=== PATIENT | male | born 1960 | race Caucasian/White ===

== ENCOUNTER 2017-01-03 02:12 | Emergency (ER) | payer BC, OTHER ==
--- NOTE | 2017-01-03 02:49 | EDM.PDOC ---
ED HPI Trauma - General Chief Complaint: Lower Extremity Injury/Pain Stated Complaint: POSSIBLE BROKEN LEG Time Seen by Provider: 01/03/17 02:47 Source: Reports: Patient History Limitations: Reports: No limitations - History of Present Illness INITIAL COMMENTS - FREE TEXT/NARRATIVE: slipped on wet spot felt a pop had ORIF in that leg. Allergies/ADRs: Allergies No Known Allergies Allergy (Verified 01/03/17 02:13) Home Medications: Ambulatory Orders Metoprolol Tartrate [Lopressor] 25 mg PO BID 02/05/15 [Confirmed 01/03/17] Rivaroxaban [Xarelto] 1 tab PO DAILY 01/03/17 [Confirmed 01/03/17] Past Medical History HEENT History: Reports: None Cardiovascular History: Reports: Hypertension Respiratory History: Reports: None Gastrointestinal History: Reports: None Genitourinary History: Reports: None Musculoskeletal History: Reports: Other (see below) Other Musculoskeletal History: left tibia, fibula fracture Neurological History: Reports: None Psychiatric History: Reports: None Endocrine/Metabolic History: Reports: None Hematologic History: Reports: None Immunologic History: Reports: None Oncologic (Cancer) History: Reports: None Dermatologic History: Reports: None Social & Family History - Tobacco Use Smoking Status *Q: Never Smoker Years of Tobacco use: 30 Used Tobacco, but Quit: Yes Month Tobacco Last Used: 0 Second Hand Smoke Exposure: No - Caffeine Use Caffeine Use: Reports: Coffee, Soda - Alcohol Use Days Per Week of Alcohol Use: 0 Number of Drinks Per Day: 6 Total Drinks Per Week: 0 - Recreational Drug Use Recreational Drug Use: No Review of Systems - Review of Systems Review Of Systems: ROS reveals no pertinent complaints other than HPI. Trauma Exam - Physical Exam Exam: See Below Exam Limited By: No limitations General Appearance: Reports: alert, WD/WN, mild distress, other (discomfort) Head: Reports: atraumatic Ears: Reports: hearing grossly normal Throat/Mouth: Reports: Normal voice, No airway compromise Neck: Reports: non-tender, full range of motion Respiratory Exam: Reports: no respiratory distress Cardiovascular: Reports: regular rate, rhythm GI/Abdominal: Reports: soft, non tender Neurologic: Reports: alert, normal mood/affect, oriented x 3 Skin: Reports: Normal color, Warm/dry Course - Vital Signs Last Recorded V/S: Last Vital Signs Temp 36.2 C 01/03/17 02:14 Pulse 90 01/03/17 02:14 Resp 18 01/03/17 02:14 BP 154/83 H 01/03/17 02:14 Pulse Ox 97 01/03/17 02:14 - Orders/Labs/Meds Orders: Active Orders 24 hr Category Date Time Status Tibia Fibula Rt [CR] Urgent Exams 01/03/17 02:19 Taken - Re-Assessments/Exams Free Text/Narrative Re-Assessment/Exam: 01/03/17 03:28 results discussed with Pt. Departure - Departure Time of Disposition: 03:28 Disposition: Home, Self-Care 01 Condition: good Clinical Impression: Closed tibial fracture Qualifiers: Encounter type: initial encounter Tibia location: shaft Fracture morphology: spiral Fracture alignment: nondisplaced Laterality: right Qualified Code(s): S82.244A - Nondisplaced spiral fracture of shaft of right tibia, initial encounter for closed fracture Instructions: Tibial Fracture, Adult, [id number] Forms: ED Department Discharge Additional Instructions: 1) wear cast boot and use crutches until re-evaluated by ORTHOPEDIST 2) call ORTHOPEDIST Wednesday 3) elevate leg as much as possible next 48 hours 4) ice intermittently for swelling. 5) recheck if there is any change or concern - My Orders Last 24 Hours: My Active Orders 01/03/17 02:19 Tibia Fibula Rt [CR] Urgent - Assessment/Plan Last 24 Hours: My Active Orders 01/03/17 02:19 Tibia Fibula Rt [CR] Urgent
[2017-01-03 03:48] VITALS: BP 138/72
== END 2017-01-03 03:43 | disposition home or self-care (01) ==
LOC: DL.ED 02:12
DX: S82.244A Nondisplaced spiral fracture of shaft of right tibia, initial encounter for closed fracture (principal); I10 Essential (primary) hypertension; W01.0XXA Fall on same level from slipping, tripping and stumbling without subsequent striking against object, initial encounter
CPT/HCPCS: 73590-RT; 99283

== ENCOUNTER 2020-03-11 11:14 | Emergency (ER) | payer BC ==
[2020-03-11] MEDS ORDERED: Sodium Chloride 0.9% 10 ML Syringe FLUSH PRN (11:26)
--- NOTE | 2020-03-11 11:31 | EDM.PDOC ---
ED HPI GENERAL MEDICAL PROBLEM - General Stated Complaint: BP HIGH/PAIN IN LEFT ARM Time Seen by Provider: 03/11/20 11:31 Source of Information: Reports: Patient, RN, RN Notes Reviewed History Limitations: Reports: No Limitations - History of Present Illness INITIAL COMMENTS - FREE TEXT/NARRATIVE: Patient presents to ER with complaint of chest heaviness, left arm numbness and tingling for the past couple weeks, intermittently. Patient states at night he sometimes feels his heart pounding. Patient states after stopping smoking several years ago he did have atrial fibrillation. Patient denies any chest pain, but complains of chest pressure or heaviness intermittently. States he does get short of breath once in a while with this. Denies any recent illnesses, fever, chills, nausea, vomiting, diarrhea. Patient states he had the right leg broken several years ago, states he wears HEMANTH hose most of the time now and longer takes his Xarelto. Patient also complains of high blood pressure, states he is on 2 different blood pressure medications for which he takes at noon. Patient states he has not taken these medications yet today. The rest of the blood pressure does decrease. Initial blood pressure 203/100, next blood pressure taken was 173/89. States he is not wearing his HEMANTH hose today as he thinks may be because he has been sweating and wearing the HEMANTH hose, he has developed small reddened areas on the skin on the legs that he wears the HEMANTH hose. Onset: Gradual Duration: Intermittent Chest Pain Score (Numeric/FACES): 3 - Related Data Allergies Allergy/AdvReac Type Severity Reaction Status Date / Time No Known Allergies Allergy Verified 03/11/20 11:32 Home Meds: Home Meds Losartan Potassium 25 mg PO DAILY 03/11/20 [History] Metoprolol Succinate 50 mg PO BID 03/11/20 [History] atorvaSTATin Calcium [Atorvastatin Calcium] 20 mg PO DAILY 03/11/20 [History] Past Medical History HEENT History: Reports: None Cardiovascular History: Reports: Hypertension Respiratory History: Reports: None Gastrointestinal History: Reports: None Genitourinary History: Reports: None Musculoskeletal History: Reports: Other (See Below) Other Musculoskeletal History: left tibia, fibula fracture Neurological History: Reports: None Psychiatric History: Reports: None Endocrine/Metabolic History: Reports: None Hematologic History: Reports: None Immunologic History: Reports: None Oncologic (Cancer) History: Reports: None Dermatologic History: Reports: None Social & Family History - Caffeine Use Caffeine Use: Reports: Coffee, Soda ED ROS GENERAL - Review of Systems Review Of Systems: Comprehensive ROS is negative, except as noted in HPI. ED EXAM, GENERAL - Physical Exam Exam: See Below Exam Limited By: No Limitations General Appearance: Alert, WD/WN, No Apparent Distress Eye Exam: Bilateral Eye: EOMI, Normal Inspection Ears: Normal External Exam, Hearing Grossly Normal Nose: Normal Inspection Throat/Mouth: Normal Inspection, Normal Voice, No Airway Compromise Head: Atraumatic, Normocephalic Neck: Normal Inspection, Supple, Non-Tender, Full Range of Motion Respiratory/Chest: No Respiratory Distress, Lungs Clear, Normal Breath Sounds, No Accessory Muscle Use, Chest Non-Tender Cardiovascular: Normal Peripheral Pulses, Regular Rate, Rhythm, No Edema, No Gallop, No JVD, No Murmur, No Rub Peripheral Pulses: 2+: Radial (L), Radial (R) GI/Abdominal: Normal Bowel Sounds, Soft, Non-Tender (Male) Exam: Deferred Rectal (Males) Exam: Deferred Back Exam: Normal Inspection, Full Range of Motion, NT Extremities: Redness (Small areas of redness on the right ankle and lower leg) Neurological: Alert, Oriented, CN II-XII Intact, Normal Cognition, Normal Gait, Normal Reflexes, No Motor/Sensory Deficits Psychiatric: Normal Affect, Normal Mood Skin Exam: Warm, Dry, Intact, Normal Color, Other (Small areas of erythema/dry skin to the right ankle/lower leg) Lymphatic: No Adenopathy Course - Vital Signs Last Recorded V/S: Last Vital Signs Temp 98.2 F 03/11/20 11:27 Pulse 74 03/11/20 11:27 Resp 14 03/11/20 11:27 BP 203/100 H 03/11/20 11:27 Pulse Ox 96 03/11/20 11:27 - Orders/Labs/Meds Orders: Active Orders 24 hr Category Date Time Status EKG Documentation Completion [RC] STAT Care 03/11/20 11:26 Active Peripheral IV Care [RC] . DIRECTED Care 03/11/20 11:27 Active Peripheral IV Insertion Adult [OM.PC] Stat Oth 03/11/20 11:26 Ordered Labs: Laboratory Tests 0603/11/20 03/11/20 Range/Units 11:31 11:31 11:31 WBC 5.1 (5.0-10.0) 10^3/uL RBC 4.33 L (4.6-6.2) 10^6/uL Hgb 14.6 D (14.0-18.0) g/dL Hct 42.1 (40.0-54.0) % MCV 97.2 (80-100) fL MCH 33.7 (27.0-34.0) pg MCHC 34.7 (33.0-35.0) g/dL Plt Count 128 L (150-450) 10^3/uL Neut % (Auto) 57.5 (42.2-75.2) % Lymph % (Auto) 29.5 (20.5-50.1) % [place] % (Auto) 10.6 H (2-8) % Eos % (Auto) 2.0 (1.0-3.0) % Baso % (Auto) 0.4 (0.0-1.0) % PT 10.2 (9.0-12.0) SEC INR 1.1 (0.9-1.2) D-Dimer, Quantitative (0-400) ng/mL Sodium 141 (136-145) mmol/L Potassium 3.2 L (3.5-5.1) mmol/L Chloride 103 (98-107) mmol/L Carbon Dioxide 29 (21-32) mmol/L Anion Gap 12.2 (7-13) mEq/L BUN 7 (7-18) mg/dL Creatinine 0.84 (0.70-1.30) mg/dL Est Cr Clr Drug Dosing 111.77 mL/min Estimated GFR (MDRD) > 60 BUN/Creatinine Ratio 8.3 (No establ ref range) Glucose 101 H (74-99) mg/dL Calcium 8.7 (8.5-10.1) mg/dL Total Bilirubin 1.3 H (0.2-1.0) mg/dL AST 29 (15-37) U/L ALT 25 (16-63) U/L Alkaline Phosphatase 109 (46-116) U/L Troponin I < 0.017 (0.000-0.056) ng/mL B-Natriuretic Peptide 201 H (0-100) pg/ml Total Protein 7.5 (6.4-8.2) g/dL Albumin 3.6 (3.4-5.0) g/dL Globulin 3.9 Albumin/Globulin Ratio 0.9 06//20 Range/Units 11:31 WBC (5.0-10.0) 10^3/uL RBC (4.6-6.2) 10^6/uL Hgb (14.0-18.0) g/dL Hct (40.0-54.0) % MCV (80-100) fL MCH (27.0-34.0) pg MCHC (33.0-35.0) g/dL Plt Count (150-450) 10^3/uL Neut % (Auto) (42.2-75.2) % Lymph % (Auto) (20.5-50.1) % [place] % (Auto) (2-8) % Eos % (Auto) (1.0-3.0) % Baso % (Auto) (0.0-1.0) % PT (9.0-12.0) SEC INR (0.9-1.2) D-Dimer, Quantitative 229 (0-400) ng/mL Sodium (136-145) mmol/L Potassium (3.5-5.1) mmol/L Chloride (98-107) mmol/L Carbon Dioxide (21-32) mmol/L Anion Gap (7-13) mEq/L BUN (7-18) mg/dL Creatinine (0.70-1.30) mg/dL Est Cr Clr Drug Dosing mL/min Estimated GFR (MDRD) BUN/Creatinine Ratio (No establ ref range) Glucose (74-99) mg/dL Calcium (8.5-10.1) mg/dL Total Bilirubin (0.2-1.0) mg/dL AST (15-37) U/L ALT (16-63) U/L Alkaline Phosphatase (46-116) U/L Troponin I (0.000-0.056) ng/mL B-Natriuretic Peptide (0-100) pg/ml Total Protein (6.4-8.2) g/dL Albumin (3.4-5.0) g/dL Globulin Albumin/Globulin Ratio Meds: Medications Discontinued Medications Generic Name Dose Route Start Last Admin Trade Name Freq PRN Reason Stop Dose Admin Sodium Chloride 10 ml 03/11/20 11:26 03/11/20 13:27 Saline Flush FLUSH 10 ml ASDIRECTED PRN Administration Keep Vein Open - Radiology Interpretation Free Text/Narrative:: Chest xray: 1. Reproducible upper lobe fibronodular densities, subtle asymmetric fullness in the right hilum, adenopathy?, And some lingular atelectasis/fibrosis that was present on January 2014 exam. 2. Normal cardiac silhouette and pulmonary vascularity. No cephalization of flow, alveolar edema or dependent new pleural fluid accumulation. 3. No new lung mass or focal lobar pneumonia. 4. No atelectasis/collapse. 5. No pneumothorax or pneumomediastinum. Midline tracheobronchial airway unremarkable. Collusion: No acute new cardiopulmonary abnormality. See rad report Departure - Departure Time of Disposition: 13:03 Disposition: Home, Self-Care 01 Reason for Transfer *Q: Other Condition: Good Clinical Impression: Nonspecific chest pain, Anxiety Hypertension Qualifiers: Hypertension type: unspecified Qualified Code(s): I10 - Essential (primary) hypertension Instructions: Chest Wall Pain, [id number], Nonspecific Chest Pain, Adult, [id number], Hypertension, Adult, [id number] Referrals: Mera Cordova [facility] [Primary Care Provider] - Forms: ED Department Discharge Additional Instructions: RX: Lorazepam Rest Refrain from drinking alcohol Follow up with Mera Rice for Stress Test Sepsis Event Note (ED) - Focused Exam Vital Signs: Vital Signs Temp Pulse Resp BP Pulse Ox 03/11/20 11:27 98.2 F 74 14 203/100 H 96 - My Orders Last 24 Hours: My Active Orders 03/11/20 11:26 EKG Documentation Completion [RC] STAT Peripheral IV Insertion Adult [OM.PC] Stat 03/11/20 11:27 Peripheral IV Care [RC] . DIRECTED - Assessment/Plan Last 24 Hours: My Active Orders 03/11/20 11:26 EKG Documentation Completion [RC] STAT Peripheral IV Insertion Adult [OM.PC] Stat 03/11/20 11:27 Peripheral IV Care [RC] . DIRECTED
[2020-03-11 11:32] VITALS: BP 203/100; PULSE 74
[2020-03-11 11:59] LABS: ANION GAP 12.2 mEq/L (7-13); CHLORIDE,CL 103 mmol/L (98-107); SODIUM,NA 141 mmol/L (136-145)
--- NOTE | 2020-03-11 13:40 | CR ---
EXAMINATION: Chest 1V Frontal SEX: Male AGE: 59 years CLINICAL HISTORY: 59-year-old male complaining of CHEST PAIN . Comparison CXR (PA/lateral) 04 Feb 2014. INTERPRETATION: Abnormal but generally unchanged. 1. Reproducible upper lobe fibronodular densities, subtle asymmetric fullness the right hilum (adenopathy?), and some lingular atelectasis/fibrosis that was present on January 2014 exam. 2. Normal cardiac silhouette and pulmonary vascularity. No cephalization of flow, alveolar edema or dependent new pleural fluid accumulation. 3. No new lung mass or focal lobar pneumonia. 4. No atelectasis/collapse. 5. No pneumothorax or pneumomediastinum. Midline tracheal bronchial airway unremarkable. CONCLUSION: No acute new cardiopulmonary abnormality. CONCLUSION:
== END 2020-03-11 13:28 | disposition home or self-care (01) ==
LOC: DL.ED 11:14
DX: I10 Essential (primary) hypertension (principal); F41.9 Anxiety disorder, unspecified; Z79.899 Other long term (current) drug therapy
CPT/HCPCS: 36415; 71045; 80053; 83880; 84484; 85025; 85379; 85610; 93005; 99285-25

== ENCOUNTER 2020-08-15 01:14 | Inpatient (IN) | payer BC ==
--- NOTE | 2020-08-15 01:20 | EDM.PDOC ---
ED HPI GENERAL MEDICAL PROBLEM - General Stated Complaint: AMBULANCE Time Seen by Provider: 08/15/20 01:12 Source of Information: Reports: Patient, EMS, EMS Notes Reviewed, RN, RN Notes Reviewed History Limitations: Reports: Intoxication - History of Present Illness INITIAL COMMENTS - FREE TEXT/NARRATIVE: Patient presents to ER per [facility] with complaint of intoxication, and fall at home. Family states patient had a syncopal episode, fell forward and hit his face and his head on the ground. Unsure if he passed out before he hit the ground or was knocked out when he hit the ground. Patient is a daily drinker. Patient states he did have COVID-19 last week but was back to work Wednesday and Wednesday this week. Onset: Today, Sudden - Related Data Allergies Allergy/AdvReac Type Severity Reaction Status Date / Time No Known Allergies Allergy Verified 03/11/20 11:32 Home Meds: Home Meds Losartan Potassium 25 mg PO DAILY 03/11/20 [History] Metoprolol Succinate 50 mg PO BID 03/11/20 [History] atorvaSTATin Calcium [Atorvastatin Calcium] 20 mg PO DAILY 03/11/20 [History] Past Medical History HEENT History: Reports: None Cardiovascular History: Reports: Hypertension Respiratory History: Reports: None Gastrointestinal History: Reports: None Genitourinary History: Reports: None Musculoskeletal History: Reports: Other (See Below) Other Musculoskeletal History: left tibia, fibula fracture Neurological History: Reports: None Psychiatric History: Reports: None Endocrine/Metabolic History: Reports: None Hematologic History: Reports: None Immunologic History: Reports: None Oncologic (Cancer) History: Reports: None Dermatologic History: Reports: None Social & Family History - Caffeine Use Caffeine Use: Reports: Coffee, Soda ED ROS GENERAL - Review of Systems Review Of Systems: Comprehensive ROS is negative, except as noted in HPI. ED EXAM, HEAD INJURY - Physical Exam Exam: See Below Exam Limited By: Intoxication General Appearance: Alert Head: Scalp Swelling, Scalp Abrasions, Facial Abrasions, Facial Tenderness Nexus Criteria: Evidence of Intoxication Eyes: Bilateral Eye: Conjunctival Injection, EOMI, PERRL (sluggish, 2) Ears: Normal External Exam, Hearing Grossly Normal Nose: Nasal Swelling, Nasal Tenderness, Dried Blood Throat/Mouth: Normal Teeth (false teeth), Lip Swelling, Other (dried blood on l ips) Neck: Non-Tender, Full Range of Motion, Normal Alignment, Normal Inspection Course - Vital Signs Last Recorded V/S: Last Vital Signs Temp 98.6 F 08/15/20 01:14 Pulse 88 08/15/20 01:14 Resp 18 08/15/20 01:14 BP 104/52 L 08/15/20 01:14 Pulse Ox 84 L 08/15/20 03:04 - Orders/Labs/Meds Orders: Active Orders 24 hr Category Date Time Status EKG Documentation Completion [RC] STAT Care 08/15/20 01:19 Active MVI, Adult with Vitamin K [Infuvite Adult] 10 ml Med 08/15/20 02:16 Active Folic Acid 1 mg Thiamine [Vitamin B-1] 100 mg Lactated Ringers [Ringers, Lactated] 1,000 ml IV ONETIME Medication Orders Multivitamins/Minerals 10 ml/Folic Acid 1 mg/ Thiamine HCl 100 mg/ Lactated Ringer's 1,011.2 mls @ 999 mls/hr IV ONETIME ONE Stop: 08/15/20 03:16 Last Admin: 08/15/20 02:30 Dose: 999 mls/hr Documented by: ANGEL Labs: Laboratory Tests 08/15/20 08/15/20 08/15/20 Range/Units 01:18 01:18 01:42 WBC 6.9 (5.0-10.0) 10^3/uL RBC 4.06 L (4.6-6.2) 10^6/uL Hgb 13.9 L (14.0-18.0) g/dL Hct 40.9 (40.0-54.0) % MCV 100.7 H D (80-100) fL MCH 34.2 H (27.0-34.0) pg MCHC 34.0 (33.0-35.0) g/dL Plt Count 325 D (150-450) 10^3/uL Neut % (Auto) 59.7 (42.2-75.2) % Lymph % (Auto) 22.3 (20.5-50.1) % Harris % (Auto) 15.8 H (2-8) % Eos % (Auto) 1.9 (1.0-3.0) % Baso % (Auto) 0.3 (0.0-1.0) % Add Manual Diff Yes Neutrophils % (Manual) 52 (42-75) % Band Neutrophils % 10 % Lymphocytes % (Manual) 24 (20-50) % Monocytes % (Manual) 12 H (2-8) % Eosinophils % (Manual) 2 (1-3) % PT (9.0-12.0) SEC INR (0.9-1.2) Sodium (136-145) mmol/L Potassium (3.5-5.1) mmol/L Chloride (98-107) mmol/L Carbon Dioxide (21-32) mmol/L Anion Gap (7-13) mEq/L BUN (7-18) mg/dL Creatinine (0.70-1.30) mg/dL Est Cr Clr Drug Dosing mL/min Estimated GFR (MDRD) BUN/Creatinine Ratio (No establ ref range) Glucose (74-99) mg/dL Calcium (8.5-10.1) mg/dL Total Bilirubin (0.2-1.0) mg/dL AST (15-37) U/L ALT (16-63) U/L Alkaline Phosphatase (46-116) U/L Troponin I (0.000-0.056) ng/mL C-Reactive Protein (0.0-0.9) mg/dL Total Protein (6.4-8.2) g/dL Albumin (3.4-5.0) g/dL Globulin Albumin/Globulin Ratio Urine Color Yellow (YELLOW) Urine Appearance Clear (CLEAR) Urine pH 6.0 (5.0-9.0) Ur Specific [facility] 1.010 (1.005-1.030) Urine Protein Negative (NEGATIVE) Urine Glucose (UA) Negative (NEGATIVE) Urine Ketones Negative (NEGATIVE) Urine Occult Blood Negative (NEGATIVE) Urine Nitrite Negative (NEGATIVE) Urine Bilirubin Negative (NEGATIVE) Urine Urobilinogen 0.2 (0.2-1.0) mg/dL Ur Leukocyte Esterase Negative (NEGATIVE) Urine RBC Not seen /HPF Urine WBC 0-5 (0-5/HPF) /HPF Ur Epithelial Cells Few (NOT SEEN) /HPF Amorphous Sediment Few (NOT SEEN) /HPF Urine Bacteria Rare (0-FEW/HPF) /HPF Urine Mucus Rare (NOT SEEN) /LPF Urine Opiates Screen Negative (NEGATIVE) Ur Oxycodone Screen Negative (NEGATIVE) Urine Methadone Screen Negative (NEGATIVE) Ur Barbiturates Screen Negative (NEGATIVE) U Tricyclic Antidepress Negative (NEGATIVE) Ur Phencyclidine Scrn Negative (NEGATIVE) Ur Amphetamine Screen Negative (NEGATIVE) U Methamphetamines Scrn Negative (NEGATIVE) Urine MDMA Screen Negative (NEGATIVE) U Benzodiazepines Scrn Negative (NEGATIVE) Urine Cocaine Screen Negative (NEGATIVE) U Marijuana (THC) Screen Negative (NEGATIVE) Ethyl Alcohol (0) mg/dL 08/15/20 08/15/20 Range/Units 01:42 01:42 WBC (5.0-10.0) 10^3/uL RBC (4.6-6.2) 10^6/uL Hgb (14.0-18.0) g/dL Hct (40.0-54.0) % MCV (80-100) fL MCH (27.0-34.0) pg MCHC (33.0-35.0) g/dL Plt Count (150-450) 10^3/uL Neut % (Auto) (42.2-75.2) % Lymph % (Auto) (20.5-50.1) % Harris % (Auto) (2-8) % Eos % (Auto) (1.0-3.0) % Baso % (Auto) (0.0-1.0) % Add Manual Diff Neutrophils % (Manual) (42-75) % Band Neutrophils % % Lymphocytes % (Manual) (20-50) % Monocytes % (Manual) (2-8) % Eosinophils % (Manual) (1-3) % PT 9.8 (9.0-12.0) SEC INR 1.0 (0.9-1.2) Sodium 131 L D (136-145) mmol/L Potassium 3.2 L (3.5-5.1) mmol/L Chloride 96 L (98-107) mmol/L Carbon Dioxide 25 (21-32) mmol/L Anion Gap 13.2 H (7-13) mEq/L BUN 9 (7-18) mg/dL Creatinine 1.19 (0.70-1.30) mg/dL Est Cr Clr Drug Dosing 71.55 mL/min Estimated GFR (MDRD) > 60 BUN/Creatinine Ratio 7.6 (No establ ref range) Glucose 114 H (74-99) mg/dL Calcium 8.5 (8.5-10.1) mg/dL Total Bilirubin 0.5 (0.2-1.0) mg/dL AST 44 H (15-37) U/L ALT 64 H (16-63) U/L Alkaline Phosphatase 97 (46-116) U/L Troponin I < 0.017 (0.000-0.056) ng/mL C-Reactive Protein 10.4 H (0.0-0.9) mg/dL Total Protein 7.1 (6.4-8.2) g/dL Albumin 2.7 L (3.4-5.0) g/dL Globulin 4.4 Albumin/Globulin Ratio 0.61 Urine Color (YELLOW) Urine Appearance (CLEAR) Urine pH (5.0-9.0) Ur Specific [facility] (1.005-1.030) Urine Protein (NEGATIVE) Urine Glucose (UA) (NEGATIVE) Urine Ketones (NEGATIVE) Urine Occult Blood (NEGATIVE) Urine Nitrite (NEGATIVE) Urine Bilirubin (NEGATIVE) Urine Urobilinogen (0.2-1.0) mg/dL Ur Leukocyte Esterase (NEGATIVE) Urine RBC /HPF Urine WBC (0-5/HPF) /HPF Ur Epithelial Cells (NOT SEEN) /HPF Amorphous Sediment (NOT SEEN) /HPF Urine Bacteria (0-FEW/HPF) /HPF Urine Mucus (NOT SEEN) /LPF Urine Opiates Screen (NEGATIVE) Ur Oxycodone Screen (NEGATIVE) Urine Methadone Screen (NEGATIVE) Ur Barbiturates Screen (NEGATIVE) U Tricyclic Antidepress (NEGATIVE) Ur Phencyclidine Scrn (NEGATIVE) Ur Amphetamine Screen (NEGATIVE) U Methamphetamines Scrn (NEGATIVE) Urine MDMA Screen (NEGATIVE) U Benzodiazepines Scrn (NEGATIVE) Urine Cocaine Screen (NEGATIVE) U Marijuana (THC) Screen (NEGATIVE) Ethyl Alcohol 257 (0) mg/dL Meds: Medications Generic Name Dose Route Start Last Admin Trade Name Freq PRN Reason Stop Dose Admin Multivitamins/Minerals 10 ml/ 1,011.2 mls @ 999 mls/hr 08/15/20 02:16 08/15/20 02:30 Folic Acid 1 mg/ Thiamine HCl IV 08/15/20 03:16 999 mls/hr 100 mg/ Lactated Ringer's ONETIME ONE Administration - Radiology Interpretation Free Text/Narrative:: CT Max/Face/Sinus wo contrast: PROCEDURE INFORMATION: Exam: CT Maxillofacial Without Contrast Exam date and time: 08/15/2020 1:55 AM Age: 60 years old Clinical indication: Injury or trauma; Fall; Blunt trauma (contusions or hematomas); Head/scalp; Loss of consciousness not known; Additional info: Passed out, hit head and face. TECHNIQUE: Imaging protocol: Computed tomography images of the face without contrast. Radiation optimization: All CT scans at this facility use at least one of these dose optimization techniques: automated exposure control; mA and/or kV adjustment per patient size (includes targeted exams where dose is matched to clinical indication); or iterative reconstruction. COMPARISON: No relevant prior studies available. FINDINGS: Orbital cavity: Orbits are normal. Globes are unremarkable. Bones/joints: No acute fracture. Paranasal sinuses: Chronic appearing mucosal thickening is present within the maxillary sinus on the left with postoperative change within the region of the ostiomeatal unit. Soft tissues: Unremarkable. IMPRESSION: 1. Chronic changes within the paranasal sinuses. No acute fracture identified Thank you for allowing us to participate in the care of your patient. Dictated and Authenticated by: Alexandru Hill MD 08/15/2020 2:18 AM Central Time ([place] & [place]) CT Head wo contrast: PROCEDURE INFORMATION: Exam: CT Head Without Contrast Exam date and time: 08/15/2020 1:55 AM Age: 60 years old Clinical indication: Injury or trauma; Fall; Blunt trauma (contusions or hematomas); Consciousness not specified; Additional info: Head injury TECHNIQUE: Imaging protocol: Computed tomography of the head without contrast. Radiation optimization: All CT scans at this facility use at least one of these dose optimization techniques: automated exposure control; mA and/or kV adjustment per patient size (includes targeted exams where dose is matched to clinical indication); or iterative reconstruction. COMPARISON: No relevant prior studies available. FINDINGS: Brain: Normal. No hemorrhage. Unremarkable white matter. No mass effect. Cerebral ventricles: No ventriculomegaly. Bones/joints: Unremarkable. No acute fracture. Paranasal sinuses: Chronic appearing mucosal changes are present within the left maxillary sinus. There is no fluid present. Mastoid air cells: Visualized mastoid air cells are well aerated. Soft tissues: Unremarkable. IMPRESSION: 1. No acute intracranial injury present. Thank you for allowing us to participate in the care of your patient. Dictated and Authenticated by: Alexandru Hill MD 08/15/2020 2:20 AM Central Time ([place] & [place]) CT CSpine wo contrast: PROCEDURE INFORMATION: Exam: CT Cervical Spine Without Contrast Exam date and time: 08/15/2020 1:55 AM Age: 60 years old Clinical indication: Injury or trauma; Fall; Blunt trauma; Additional info: Fall, injury TECHNIQUE: Imaging protocol: Computed tomography images of the cervical spine without contrast. Radiation optimization: All CT scans at this facility use at least one of these dose optimization techniques: automated exposure control; mA and/or kV adjustment per patient size (includes targeted exams where dose is matched to clinical indication); or iterative reconstruction. COMPARISON: No relevant prior studies available. FINDINGS: Vertebrae: Mild disc space narrowing is present throughout the cervical spine. Cervical vertebral body height and alignment are well maintained. No acute fractures are present. Facet joints are in anatomic alignment. C1-C2 relationship is well preserved. C2-C3: No significant disc protrusion. No severe spinal canal stenosis. No significant neural foraminal narrowing. C3-C4: No significant disc protrusion. No severe spinal canal stenosis. No significant neural foraminal narrowing. C4-C5: No significant disc protrusion. No severe spinal canal stenosis. No significant neural foraminal narrowing. C5-C6: No significant disc protrusion. No severe spinal canal stenosis. No significant neural foraminal narrowing. C6-C7: No significant disc protrusion. No severe spinal canal stenosis. No significant neural foraminal narrowing. C7-T1: No significant disc protrusion. No severe spinal canal stenosis. No significant neural foraminal narrowing. Soft tissues: Unremarkable. Lungs: Moderate grade emphysematous changes are noted within the upper lobes bilaterally. IMPRESSION: 1. Mild to moderate grade degenerative disc and degenerative joint disease. No acute cervical spine fracture or subluxation present. Thank you for allowing us to participate in the care of your patient. Dictated and Authenticated by: Alexandru Hill MD 08/15/2020 2:21 AM Central Time ([place] & [place]) Chest xray: PROCEDURE INFORMATION: Exam: XR Chest, 1 View Exam date and time: 08/15/2020 1:43 AM Age: 60 years old Clinical indication: Chest pain; Type not specified TECHNIQUE: Imaging protocol: XR of the chest Views: 1 view. COMPARISON: CR Chest 1V Frontal 03/11/2020 11:55 AM FINDINGS: Lungs: Chronic appearing interstitial changes are present with patchy airspace density in the periphery of both lungs. Findings could represent pneumonia. No pulmonary edema is present. Pleural space: Unremarkable. No pleural effusion. No pneumothorax. Heart/Mediastinum: Unremarkable. No cardiomegaly. Bones/joints: Unremarkable. IMPRESSION: Chronic appearing interstitial change with increased peripheral airspace opacity in both lungs when compared to the study performed on March 11, 2020. Findings are nonspecific. Atelectasis and pneumonia are possible. Consider atypical/viral etiologies. Thank you for allowing us to participate in the care of your patient. Dictated and Authenticated by: Alexandru Hill MD 08/15/2020 2:23 AM Central Time ([place] & [place]) See Rad report - Re-Assessments/Exams Free Text/Narrative Re-Assessment/Exam: 08/15/20 03:10 Oxygen saturation when sleeping down to low 80s. Patient put on nasal cannula 4 L to get above 90%. Discussed patient case with Dr. Davis who agreed to accept the patient for acute care admission. Departure - Departure Time of Disposition: 03:12 Disposition: Admitted As Inpatient 65 Condition: Fair Clinical Impression: Pneumonia due to 2019-nCoV Alcohol intoxication Qualifiers: Complication of substance-induced condition: with unspecified complication Qualified Code(s): F10.929 - Alcohol use, unspecified with intoxication, unspecified - Discharge Information *PRESCRIPTION DRUG MONITORING PROGRAM REVIEWED*: No *COPY OF PRESCRIPTION DRUG MONITORING REPORT IN PATIENT AMELIA: No Forms: ED Department Discharge Sepsis Event Note (ED) - Focused Exam Vital Signs: Vital Signs Temp Pulse Resp BP Pulse Ox 08/15/20 03:04 84 L 08/15/20 01:14 98.6 F 88 18 104/52 L 90 L - My Orders Last 24 Hours: My Active Orders 08/15/20 01:19 EKG Documentation Completion [RC] STAT 08/15/20 02:16 MVI, Adult with Vitamin K [Infuvite Adult] 10 ml Folic Acid 1 mg Thiamine [Vit thornton B-1] 100 mg Lactated Ringers [Ringers, Lactated] 1,000 ml IV ONETIME - Assessment/Plan Last 24 Hours: My Active Orders 08/15/20 01:19 EKG Documentation Completion [RC] STAT 08/15/20 02:16 MVI, Adult with Vitamin K [Infuvite Adult] 10 ml Folic Acid 1 mg Thiamine [Vitamin B-1] 100 mg Lactated Ringers [Ringers, Lactated] 1,000 ml IV ONETIME
[2020-08-15 02:11] LABS: ANION GAP 13.2 mEq/L (7-13); CHLORIDE,CL 96 mmol/L (98-107); SODIUM,NA 131 mmol/L (136-145)
[2020-08-15] MEDS ORDERED: MVI, Adult with Vitamin K 10 ML, Folic Acid 1 MG, Thiamine 100 MG in Lactated Ringers 1... IV ONE ×4 (02:16)
--- NOTE | 2020-08-15 02:19 | CT ---
PROCEDURE INFORMATION: Exam: CT Maxillofacial Without Contrast Exam date and time: 08/15/2020 1:55 AM Age: 60 years old Clinical indication: Injury or trauma; Fall; Blunt trauma (contusions or hematomas); Head/scalp; Loss of consciousness not known; Additional info: Passed out, hit head and face. TECHNIQUE: Imaging protocol: Computed tomography images of the face without contrast. Radiation optimization: All CT scans at this facility use at least one of these dose optimization techniques: automated exposure control; mA and/or kV adjustment per patient size (includes targeted exams where dose is matched to clinical indication); or iterative reconstruction. COMPARISON: No relevant prior studies available. FINDINGS: Orbital cavity: Orbits are normal. Globes are unremarkable. Bones/joints: No acute fracture. Paranasal sinuses: Chronic appearing mucosal thickening is present within the maxillary sinus on the left with postoperative change within the region of the ostiomeatal unit. Soft tissues: Unremarkable. IMPRESSION: 1. Chronic changes within the paranasal sinuses. No acute fracture identified
--- NOTE | 2020-08-15 02:21 | CT ---
PROCEDURE INFORMATION: Exam: CT Head Without Contrast Exam date and time: 08/15/2020 1:55 AM Age: 60 years old Clinical indication: Injury or trauma; Fall; Blunt trauma (contusions or hematomas); Consciousness not specified; Additional info: Head injury TECHNIQUE: Imaging protocol: Computed tomography of the head without contrast. Radiation optimization: All CT scans at this facility use at least one of these dose optimization techniques: automated exposure control; mA and/or kV adjustment per patient size (includes targeted exams where dose is matched to clinical indication); or iterative reconstruction. COMPARISON: No relevant prior studies available. FINDINGS: Brain: Normal. No hemorrhage. Unremarkable white matter. No mass effect. Cerebral ventricles: No ventriculomegaly. Bones/joints: Unremarkable. No acute fracture. Paranasal sinuses: Chronic appearing mucosal changes are present within the left maxillary sinus. There is no fluid present. Mastoid air cells: Visualized mastoid air cells are well aerated. Soft tissues: Unremarkable. IMPRESSION: 1. No acute intracranial injury present.
--- NOTE | 2020-08-15 02:22 | CT ---
PROCEDURE INFORMATION: Exam: CT Cervical Spine Without Contrast Exam date and time: 08/15/2020 1:55 AM Age: 60 years old Clinical indication: Injury or trauma; Fall; Blunt trauma; Additional info: Fall, injury TECHNIQUE: Imaging protocol: Computed tomography images of the cervical spine without contrast. Radiation optimization: All CT scans at this facility use at least one of these dose optimization techniques: automated exposure control; mA and/or kV adjustment per patient size (includes targeted exams where dose is matched to clinical indication); or iterative reconstruction. COMPARISON: No relevant prior studies available. FINDINGS: Vertebrae: Mild disc space narrowing is present throughout the cervical spine. Cervical vertebral body height and alignment are well maintained. No acute fractures are present. Facet joints are in anatomic alignment. C1-C2 relationship is well preserved. C2-C3: No significant disc protrusion. No severe spinal canal stenosis. No significant neural foraminal narrowing. C3-C4: No significant disc protrusion. No severe spinal canal stenosis. No significant neural foraminal narrowing. C4-C5: No significant disc protrusion. No severe spinal canal stenosis. No significant neural foraminal narrowing. C5-C6: No significant disc protrusion. No severe spinal canal stenosis. No significant neural foraminal narrowing. C6-C7: No significant disc protrusion. No severe spinal canal stenosis. No significant neural foraminal narrowing. C7-T1: No significant disc protrusion. No severe spinal canal stenosis. No significant neural foraminal narrowing. Soft tissues: Unremarkable. Lungs: Moderate grade emphysematous changes are noted within the upper lobes bilaterally. IMPRESSION: 1. Mild to moderate grade degenerative disc and degenerative joint disease. No acute cervical spine fracture or subluxation present.
--- NOTE | 2020-08-15 02:23 | CR ---
PROCEDURE INFORMATION: Exam: XR Chest, 1 View Exam date and time: 08/15/2020 1:43 AM Age: 60 years old Clinical indication: Chest pain; Type not specified TECHNIQUE: Imaging protocol: XR of the chest Views: 1 view. COMPARISON: CR Chest 1V Frontal 03/11/2020 11:55 AM FINDINGS: Lungs: Chronic appearing interstitial changes are present with patchy airspace density in the periphery of both lungs. Findings could represent pneumonia. No pulmonary edema is present. Pleural space: Unremarkable. No pleural effusion. No pneumothorax. Heart/Mediastinum: Unremarkable. No cardiomegaly. Bones/joints: Unremarkable. IMPRESSION: Chronic appearing interstitial change with increased peripheral airspace opacity in both lungs when compared to the study performed on March 11, 2020. Findings are nonspecific. Atelectasis and pneumonia are possible. Consider atypical/viral etiologies.
[2020-08-15] MEDS ORDERED: Acetaminophen 325 MG Tab PO PRN (04:01)
[2020-08-15] MEDS ORDERED: oxyCODONE 5 MG Tab PO PRN (04:01)
[2020-08-15] MEDS ORDERED: LORazepam 0.5 MG Tab PO PRN (04:09)
[2020-08-15] MEDS ORDERED: Potassium Chloride 10 MEQ Tab.ER PO ONE (04:09)
[2020-08-15] MEDS ORDERED: Sodium Chloride 0.9% 1,000 ML IV SCH (04:15)
--- NOTE | 2020-08-15 04:43 | HP ---
CHIEF COMPLAINT: Hypoxemia. HISTORY OF PRESENT ILLNESS: The patient is a 60-year-old male who was brought in by ambulance to the emergency room because of intoxication and had a fall at home, and family stated that he had a syncopal episode and fell forward and hit his face and his head on the ground. Patient unsure if he passed out before he hit the ground or was knocked out when he hit the ground. The patient mentioned that has not usually passed out from alcohol, but he mentioned that he has not had any drink for the last 2 weeks because of the COVID and he might have overdone it today. The patient was diagnosed with COVID last week, but he has been back to work on Wednesday and Wednesday this week. While patient was in the emergency room, the patient was noted to be hypoxemic on room air. His saturation was 84% and he had a chest x-ray which showed some nonspecific opacities compatible with viral infiltrate. Because of this, he was then admitted for further evaluation and management. PAST MEDICAL HISTORY: Remarkable for hypertension. SOCIAL HISTORY: He is a regular alcohol drinker, but has not had any drink for the last 2 weeks except for tonight. The patient is a nonsmoker and quit smoking in 2006. REVIEW OF SYSTEMS: The patient denies any headache, chest pain, shortness of breath, abdominal pain, but he mentioned that he had on and off diarrhea for the last couple of days. ALLERGIES: No known drug allergies. HOME MEDICATIONS: Losartan, metoprolol and atorvastatin. PHYSICAL EXAMINATION: General: The patient is alert and oriented, not in any acute distress. Vital Signs: Blood pressure is 104/52, pulse of 88, respiration of 18, temperature of 98.6, saturation is 84% on room air. SHEENT: Normocephalic. There are pink palpebral conjunctivae. Sclerae anicteric. No JVD. No lymphadenopathy. No C-spine tenderness. Heart: Regular rate and rhythm. Normal S1 and S2. No gallops. No rubs. Lungs: Diminished breath sounds on both bases, but no significant crackles and no wheezing. Abdomen: Mild to moderately obese, soft, nontender. Bowel sounds positive. Extremities: Negative for any gross deformity. There is no calf tenderness. No pedal edema. Neurologic: Nonfocal. LABORATORY WORKUP: CBC: WBC 6.9, hemoglobin is 13.9, hematocrit is 40.9, platelets 325. Urinalysis is unremarkable. Protime PT is 9.8, INR is 1 and comprehensive metabolic panel remarkable for sodium of 131, potassium is 3.2, chloride of 96, glucose of 114, AST is 44, ALT is 64. Rest of the panel unremarkable and troponin is less than 0.017. CAT scan of the face and maxillary sinuses is negative for any fracture. CAT scan of the head showed no acute intracranial injury. CT scan of the spine showed DJD, but no fracture or subluxation. Chest x-ray showed chronic-appearing interstitial changes with increased peripheral airspace opacity in both lungs. Consider atypical and viral etiologies. ADMITTING DIAGNOSES: 1. Hypoxemia. 2. Pneumonia. 3. Recent COVID infection. 4. Hypokalemia. 5. Hyponatremia. 6. Hypertension. 7. Alcohol intoxication. 8. History of fall. TREATMENT PLAN: The patient is going to be admitted to General Medicine floor. He will be empirically started on IV antibiotics and dexamethasone as well as inhalers for his pneumonia and hypoxemia. He will also be on DT protocol because of alcohol intoxication, and potassium, sodium and chloride will be repleted through IV, and he will be on DVT prophylaxis, and the rest of the management as necessary. The patient is a full code. [facility] /[id number]
[2020-08-15] MEDS: cefTRIAXone 1 GM in Sodium Chloride 0.9% 50 ML IV SCH ×2 (04:44→21:45)
[2020-08-15] MEDS: Azithromycin 500 MG in Sodium Chloride 0.9% 250 ML IV SCH ×2 (05:20→22:14)
[2020-08-15] MEDS: Formoterol/Mometasone 200-5 MCG 8.8 GM Inhaler IH SCH ×2 (08:08→17:43)
[2020-08-15] MEDS: Dexamethasone 4 MG/ML SDV IVPUSH SCH (08:57)
[2020-08-15] MEDS: Metoprolol Succinate 50 MG Tab.ER PO SCH (08:59)
[2020-08-15] MEDS: Enoxaparin 40 MG/0.4 ML Syringe SUBCUT SCH (09:00)
[2020-08-15] MEDS: Albuterol 6.7 GM Inhaler INH SCH ×4 (09:01→21:50)
[2020-08-15] MEDS ORDERED: Pneumococcal Polyvalent-23 Vaccine 0.5 ML SDV SUBCUT ONE (14:19)
[2020-08-15] MEDS ORDERED: Multivitamins, Therapeutic with Minerals Tab PO SCH (21:00)
[2020-08-15] MEDS ORDERED: Thiamine 100 MG Tab PO SCH (21:00)
[2020-08-15] MEDS ORDERED: Folic Acid 1 MG Tab PO SCH (21:00)
[2020-08-16 06:49] LABS: ANION GAP 12.2 mEq/L (7-13); CHLORIDE,CL 104 mmol/L (98-107); SODIUM,NA 138 mmol/L (136-145)
[2020-08-16] MEDS ORDERED: [UNRECOGNIZED DRUG - REMARK] SCH (09:00)
[2020-08-16] MEDS: Dexamethasone 4 MG/ML SDV IVPUSH SCH (10:04)
[2020-08-16] MEDS: Enoxaparin 40 MG/0.4 ML Syringe SUBCUT SCH (10:05)
[2020-08-16] MEDS: Metoprolol Succinate 50 MG Tab.ER PO SCH (10:05)
[2020-08-16] MEDS: Formoterol/Mometasone 200-5 MCG 8.8 GM Inhaler IH SCH (10:07)
[2020-08-16] MEDS: Albuterol 6.7 GM Inhaler INH SCH ×2 (10:07→13:28)
[2020-08-16 10:08] VITALS: PULSE 83
[2020-08-16] MEDS ORDERED: Pneumococcal Polyvalent-23 Vaccine 0.5 ML SDV IM ONE (10:45)
[2020-08-16] MEDS ORDERED: FLU Vacc QS2020-21 36MOS UP/PF 60 MCG/0.5 ML Syringe IM ONE (10:45)
--- NOTE | 2020-08-16 10:46 | PN ---
DATE: 08/16/2020 SUBJECTIVE: The patient continues to do well and patient denies any significant ongoing complaint except for some mild cough. Denies any chest pain, syncope, nor any other significant complaints. The patient's saturation has been running 93% to 95% on room air. OBJECTIVE: Vital Signs: This morning, blood pressure is 142/78, pulse 85, respiration of 16, and temperature of 98.2. Heart: Regular rate and rhythm. Normal S1 and S2. No gallops. No rubs. Lungs: Equal bilaterally. No crackles. No wheezing. Abdomen: Soft, nontender. Bowel sounds positive. Extremities: Negative for any pedal edema. No calf tenderness. LABORATORY DATA: Lab workup this morning, CBC; WBC 9.6, hemoglobin is 12.9, hematocrit is 37.3, platelet is 278. Chem-6: unremarkable. Glucose is 136, and troponin is less than 0.017. PLAN: We will discharge the patient home today. [facility] /[id number]
--- NOTE | 2020-08-16 11:14 | DISCH ---
FINAL DIAGNOSES: 1. Hypoxemia. 2. Pneumonia. 3. Recent COVID infection. 4. Hypokalemia. 5. Hyponatremia. 6. Hypertension. 7. Alcohol intoxication. 8. History of fall. BRIEF HISTORY OF PRESENT ILLNESS: The patient is a 60-year-old male who was admitted through the emergency room because of alcohol intoxication and fall and the patient also noted to be hypoxemic and also with nonspecific opacity on the chest x-ray compatible with viral infiltrate. PERTINENT LAB, X-RAY, AND OTHER TESTS: On admission, potassium is 3.2, chloride of 96, sodium is 131. CAT scan of the face and maxillary sinus is negative for any fracture, CAT scan of the head is negative for any acute intracranial abnormality, CT of the spine showed DJD, but no fracture, and chest x-ray showed chronic-appearing interstitial changes with increased peripheral airspace opacity in both lungs, consider atypical viral etiology. Lab workup on 08/16/2020, WBC is 9.6, hemoglobin is 12.9, hematocrit is 37.3, platelets 278. Chem-6: Glucose is 136. The rest of the panel unremarkable and 2nd set of troponin is less than 0.017. HOSPITAL COURSE: The patient was admitted to General Medicine floor. He was placed on telemetry and he remained in sinus rhythm with no significant arrhythmia. He was also empirically started on IV azithromycin and ceftriaxone as well as IV dexamethasone. Potassium was repleted and he was resumed on his home medication. The patient did well. Hospital course was uncomplicated, and the patient's oxygen saturations slowly improved, and the rest of the hospital course was unremarkable, and he was subsequently discharged. Condition on discharge was improved. The patient is going to follow up with [facility] in 7 to 10 days and the patient will be continued on his home medication including Lipitor, metoprolol, and losartan, and he will also be continued on azithromycin as well as dexamethasone orally. [facility] /[id number]
[2020-08-16 11:52] VITALS: BP 149/70
[2020-08-16] MEDS ORDERED: cefTRIAXone 1 GM in Sodium Chloride 0.9% 50 ML IV SCH (21:00)
== END 2020-08-16 13:39 | disposition home or self-care (01) | DRG 139 ==
LOC: DL.ED 01:14 → DL.MS 03:18 → DL.ED 03:22
PROVIDERS: ADMIT Internal Medicine; ATTEND Internal Medicine
DX: J18.9 Pneumonia, unspecified organism (principal); E87.6 Hypokalemia; E87.1 Hypo-osmolality and hyponatremia; I10 Essential (primary) hypertension; F10.129 Alcohol abuse with intoxication, unspecified; Z91.81 History of falling; Z87.891 Personal history of nicotine dependence; Z79.899 Other long term (current) drug therapy; Z86.19 Personal history of other infectious and parasitic diseases
CPT/HCPCS: 36415; 70450; 70486; 71045; 72125; 80048; 80053; 80305-QW; 80307; 81001; 84484; 85025; 85610; 86140; 90686; 90732; 93005; 96365; 99285-25; A9270-GY; J0456; J0696; J1100; J1650; J3411; J3490; J7030; J7050; J7120

== ENCOUNTER 2021-11-25 05:30 | Day surgery (SDC) | payer BC ==
[~2021-11-25 05:30] MED LIST: Dextrose 5%-0.45% NaCl 1,000 ML IV SCH
[2021-11-25] MEDS ORDERED: fentaNYL 100 MCG/2 ML SDV IV ONE ×3 (05:31→06:29)
[2021-11-25] MEDS ORDERED: Midazolam 1 MG/ML 2 ML SDV IV ONE ×3 (05:31→06:30)
[2021-11-25] MEDS ORDERED: Midazolam 1 MG/ML 2 ML SDV ONE (06:10)
[2021-11-25] MEDS ORDERED: fentaNYL 100 MCG/2 ML SDV ONE (06:10)
[2021-11-25] MEDS ORDERED: Dextrose 5%-0.45% NaCl 1,000 ML IV SCH (06:30)
[2021-11-25] MEDS ORDERED: Sodium Chloride 0.9% 10 ML Syringe FLUSH PRN (06:30)
[2021-11-25 08:53] VITALS: BP 125/62; PULSE 89
[2021-11-25] MEDS ORDERED: Sodium Chloride 0.9% 10 ML Syringe FLUSH SCH (09:00)
== END 2021-11-25 08:55 | disposition home or self-care (01) ==
LOC: DL.ENDO 05:30
PROVIDERS: ATTEND Internal Medicine Gastroenterology
DX: K25.9 Gastric ulcer, unspecified as acute or chronic, without hemorrhage or perforation (principal); D50.9 Iron deficiency anemia, unspecified; E78.00 Pure hypercholesterolemia, unspecified; E53.8 Deficiency of other specified B group vitamins; I10 Essential (primary) hypertension; G47.00 Insomnia, unspecified; F41.1 Generalized anxiety disorder; I48.91 Unspecified atrial fibrillation; J44.9 Chronic obstructive pulmonary disease, unspecified; F32.A Depression, unspecified; Z87.891 Personal history of nicotine dependence
CPT/HCPCS: 43239; 87077; J2250; J3010; J7042

== ENCOUNTER 2021-12-12 05:33 | Day surgery (SDC) | payer BC ==
[2021-12-12] MEDS ORDERED: Midazolam 1 MG/ML 2 ML SDV IV ONE ×7 (05:34→06:49)
[2021-12-12] MEDS ORDERED: fentaNYL 100 MCG/2 ML SDV IV ONE ×6 (05:34→06:55)
[2021-12-12] MEDS ORDERED: Midazolam 1 MG/ML 2 ML SDV ONE (06:02)
[2021-12-12] MEDS ORDERED: fentaNYL 100 MCG/2 ML SDV ONE (06:02)
[2021-12-12 09:26] VITALS: BP 123/60; PULSE 76
== END 2021-12-12 09:00 | disposition home or self-care (01) ==
LOC: DL.ENDO 05:33
PROVIDERS: ATTEND Internal Medicine Gastroenterology
DX: K57.31 Diverticulosis of large intestine without perforation or abscess with bleeding (principal); K64.8 Other hemorrhoids; Z87.891 Personal history of nicotine dependence; F10.10 Alcohol abuse, uncomplicated; E78.00 Pure hypercholesterolemia, unspecified; D64.9 Anemia, unspecified; E53.8 Deficiency of other specified B group vitamins; I10 Essential (primary) hypertension; G47.00 Insomnia, unspecified; J44.9 Chronic obstructive pulmonary disease, unspecified; F41.1 Generalized anxiety disorder
CPT/HCPCS: J2250; J3010; J7042

== ENCOUNTER 2022-01-09 09:33 | Emergency (ER) | payer OTHER, BC ==
[2022-01-09] MEDS ORDERED: Bacitracin Oint 1 GM U/D Packet TOP ONE (09:44)
[2022-01-09 09:57] VITALS: BP 187/98; PULSE 76
[2022-01-09] MEDS ORDERED: Lidocaine 1% 30 ML SDV INJECT ONE (10:02)
== END 2022-01-09 11:11 | disposition home or self-care (01) ==
LOC: DL.ED 09:33
DX: S61.012A Laceration without foreign body of left thumb without damage to nail, initial encounter (principal); J44.9 Chronic obstructive pulmonary disease, unspecified; I48.91 Unspecified atrial fibrillation; E78.00 Pure hypercholesterolemia, unspecified; I10 Essential (primary) hypertension; Z86.16 Personal history of COVID-19; W23.1XXA Caught, crushed, jammed, or pinched between stationary objects, initial encounter
CPT/HCPCS: 12002; 99282-25

== ENCOUNTER 2024-05-04 16:20 | Emergency (ER) | payer BC ==
[2024-05-04 17:02] VITALS: BP 105/79; PULSE 118
== END 2024-05-04 17:24 ==
LOC: DL.ED 16:20
DX: D64.9 Anemia, unspecified (principal); D69.6 Thrombocytopenia, unspecified; I10 Essential (primary) hypertension; E78.00 Pure hypercholesterolemia, unspecified; J44.9 Chronic obstructive pulmonary disease, unspecified; Z86.16 Personal history of COVID-19; Z79.899 Other long term (current) drug therapy
CPT/HCPCS: 99284

== ENCOUNTER 2024-12-18 14:23 | Emergency (ER) | payer BC, MEDICARE ==
[2024-12-18 14:39] VITALS: BP 133/101; PULSE 92
[2024-12-18] MEDS: Dexamethasone 4 MG/ML SDV IM ONE (14:54)
== END 2024-12-18 15:03 | disposition home or self-care (01) ==
LOC: DL.ED 14:23
DX: R09.1 Pleurisy (principal); I10 Essential (primary) hypertension; I48.91 Unspecified atrial fibrillation; E78.00 Pure hypercholesterolemia, unspecified; J44.9 Chronic obstructive pulmonary disease, unspecified; Z79.02 Long term (current) use of antithrombotics/antiplatelets; Z79.899 Other long term (current) drug therapy; Z79.51 Long term (current) use of inhaled steroids; Z86.16 Personal history of COVID-19
CPT/HCPCS: 96372; 99283; 99284; J1100

== ENCOUNTER 2025-07-04 21:01 | Emergency (ER) | payer MEDICARE, OTHER ==
[2025-07-04 21:36] LABS: BASOPHILS PERCENT AUTO 0.4 % (0.0-1.0); EOSINOPHILS PERCENT AUTO 1.8 % (1.0-3.0); LYMPHOCYTES PERCENT AUTO 10.6 % (20.5-50.1); MONOCYTES PERCENT AUTO 7.3 % (2-8); NEUTROPHILS PERCENT AUTO 79.9 % (42.2-75.2); PLATELET COUNT,PLT 116 10^3/uL (150-450); RED BLOOD CELL COUNT 3.68 10^6/uL (4.6-6.2); WHITE BLOOD CELL COUNT,WBC 8.4 10^3/uL (5.0-10.0)
[2025-07-04 21:54] LABS: B-TYPE NATRIURETIC PEPTIDE,BNP 348.0 pg/ml (0-100)
[2025-07-04 22:01] LABS: ALANINE AMINOTRANSFERASE,ALT 20.0 U/L (16-63); ASPARTATE AMNIOTRANSFERASE,AST 28.0 U/L (15-37); BILIRUBIN TOTAL 1.5 mg/dL (0.2-1.0); BLOOD UREA NITROGEN,BUN 22.0 mg/dL (7-18); CARBON DIOXIDE,CO2 24.0 mmol/L (21-32); CHLORIDE,CL 101.0 mmol/L (98-107); CREATININE 1.43 mg/dL (0.70-1.30); EST CRCL DRUG DOSING (CG) 60.73 mL/min; GLUCOSE RANDOM 119.0 mg/dL (70-99); POTASSIUM,K 3.6 mmol/L (3.5-5.1); PROTEIN TOTAL,TP 6.9 g/dL (6.4-8.2); SODIUM,NA 136.0 mmol/L (136-145); TSH ULTRASENSITIVE 16.48 uIU/mL (0.36-3.74)
[2025-07-04 22:03] LABS: A/G RATIO 0.86; ESTIMATED GFR 54.0 mL/min (>=60); LACTIC ACID 3.0 mmol/L (0.4-2.0)
[2025-07-04] MEDS: Levofloxacin/Dextrose 5%-Water 500 MG in Premix Bag 1 BAG IV ONE (22:05)
[2025-07-04] MEDS: Diltiazem 25 MG/5 ML SDV IVPUSH ONE (23:07)
[2025-07-04] MEDS: Magnesium Sulfate 2 GM/50 mL 2 GM in Premix Bag 1 BAG IV ONE (23:50)
[2025-07-05 00:18] VITALS: BP 117/71; PULSE 99
== END 2025-07-04 23:50 ==
LOC: DL.ED 21:01
DX: I48.91 Unspecified atrial fibrillation (principal); I95.9 Hypotension, unspecified; J93.9 Pneumothorax, unspecified; J40 Bronchitis, not specified as acute or chronic; I10 Essential (primary) hypertension; Z79.899 Other long term (current) drug therapy; E78.00 Pure hypercholesterolemia, unspecified; Z86.16 Personal history of COVID-19
CPT/HCPCS: 36415; 71045; 80053; 83605; 83735; 83880; 84145; 84439; 84443; 84484; 85025; 87040; 96361; 96365; 96367; 99285; J1163; J1956; J3490; J7030